=== PATIENT | female | born 1985 | race Caucasian/White ===

== ENCOUNTER 2021-03-06 16:12 | Outpatient (CLI) | payer BC ==
[2021-03-06 17:09] LABS: HEMOGLOBIN 10.4 gm/dl (12.3-15.3); RED BLOOD COUNT 3.7 M/UL (4.00-5.10)
[2021-03-06 17:39] LABS: BUN/CREATININE RATIO 9 (0-10)
== END 2021-03-06 21:52 | disposition home or self-care (01) ==
LOC: GENOP 16:12 → OB 16:31 → GENOP 21:52
PROVIDERS: Obstetrics & Gynecology
DX: O99.513 Diseases of the respiratory system complicating pregnancy, third trimester (principal); J45.909 Unspecified asthma, uncomplicated; Z3A.34 34 weeks gestation of pregnancy; O09.513 Supervision of elderly primigravida, third trimester; Z88.1 Allergy status to other antibiotic agents; Z88.2 Allergy status to sulfonamides
CPT/HCPCS: 80053; 81001; 82570; 83615; 83880; 84156; 84550; 85025; 93005; 96365; 96367; J2550; Q9967

== ENCOUNTER 2021-03-28 00:59 | Inpatient (IN) | payer BC ==
[~2021-03-28] VITALS: Ht 162.6 cm; Wt 92.5 kg
[2021-03-28 01:33] LABS: RED BLOOD COUNT 3.7 M/UL (4.00-5.10); WHITE BLOOD COUNT 12.6 K/UL (4.5-11.0)
[2021-03-28] MEDS ORDERED: PANTOPRAZOLE SO20 MG PO (06:43)
[2021-03-28] MEDS ORDERED: REGLAN10 MG PO (06:44)
[2021-03-28] MEDS ORDERED: DICLEGIS DR 101 EACH PO (06:45)
[2021-03-28] MEDS ORDERED: ASPIRIN81 MG PO (06:46)
[2021-03-28] MEDS ORDERED: 24HR ALLERGY REL5 MG PO (06:46)
[2021-03-28] MEDS ORDERED: SYMBICORT 160-1 INHA INH (06:46)
[2021-03-28] MEDS ORDERED: MONTELUKAST SOD10 MG PO (17:49)
[2021-03-29] MEDS ORDERED: IBUPROFEN800 MG PO (01:54)
[2021-03-29] MEDS ORDERED: DOCUSATE SODIU100 MG PO (01:54)
[2021-03-29] MEDS ORDERED: HYDROCODON-ACE1 EAC4 PO (01:54)
[2021-03-30 06:42] LABS: HEMOGLOBIN 8.8 gm/dl (12.3-15.3)
[2021-03-30] MEDS ORDERED: FERROUS SULFAT325 M2 PO (10:54)
== END 2021-03-30 12:49 | disposition home or self-care (01) | DRG 807 ==
LOC: GENOP 00:59 → OB 01:25
PROVIDERS: ADMIT Obstetrics & Gynecology
PROC: 10H07YZ Insertion of Other Device into Products of Conception, Via Natural or Artificial Opening (ICD-10-PCS; 2021-03-28)
PROC: 10E0XZZ Delivery of Products of Conception, External Approach (ICD-10-PCS; principal; 2021-03-29)
PROC: 0KQM0ZZ Repair Perineum Muscle, Open Approach (ICD-10-PCS; 2021-03-29)
PROC: 4A1HXCZ Monitoring of Products of Conception, Cardiac Rate, External Approach (ICD-10-PCS; 2021-03-29)
PROC: 10907ZC Drainage of Amniotic Fluid, Therapeutic from Products of Conception, Via Natural or Artificial Opening (ICD-10-PCS; 2021-03-29)
PROC: 3E0234Z Introduction of Serum, Toxoid and Vaccine into Muscle, Percutaneous Approach (ICD-10-PCS; 2021-03-29)
DX: O99.824 Streptococcus B carrier state complicating childbirth (principal); Z37.0 Single live birth; Z3A.37 37 weeks gestation of pregnancy; O70.1 Second degree perineal laceration during delivery; O13.4 Gestational [pregnancy-induced] hypertension without significant proteinuria, complicating childbirth; O99.52 Diseases of the respiratory system complicating childbirth; Z20.822 Contact with and (suspected) exposure to COVID-19; O69.81X0 Labor and delivery complicated by cord around neck, without compression, not applicable or unspecified; J45.909 Unspecified asthma, uncomplicated; O71.82 Other specified trauma to perineum and vulva; Z98.890 Other specified postprocedural states; Z23 Encounter for immunization
CPT/HCPCS: 51702; 81001; 82800; 85014; 85018; 85025; 85461; 86850; 86900; 86901; 90471; 90715; 94640; 94664; 94760; C9113; J0690; J2405; J2550; J2590; J2765; J2790; J7120; U0002